=== PATIENT | male | born 1990 | race Caucasian/White ===

== ENCOUNTER 2017-01-12 19:34 | Emergency (ER) | payer SELFPAY ==
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
[2017-01-12] MEDS ORDERED: NAPROXEN 250 MG TABLET PO ONE (20:49)
--- NOTE | 2017-01-15 15:17 | RADIOLOGY REPORT ---
EXAM: ELBOW, LEFT 3 VIEWS HISTORY: PAIN. TECHNIQUE: Three views of the left elbow were performed. FINDINGS: No evidence of fracture or dislocation. No lytic or blastic lesion. IMPRESSION: NEGATIVE LEFT ELBOW EXAMINATION. [facility]: [id number] [facility]
--- NOTE | 2017-01-15 15:18 | RADIOLOGY REPORT ---
EXAM: HAND, RIGHT 3 VIEWS HISTORY: INJURY. TECHNIQUE: Three views of the right hand were performed. FINDINGS: No evidence of fracture or dislocation. No lytic or blastic lesion. IMPRESSION: NEGATIVE RIGHT HAND EXAMINATION. [facility]: [id number] [facility]
== END 2017-01-12 21:07 | disposition home or self-care (01) ==
LOC: ER 19:34
DX: S50.02XA Contusion of left elbow, initial encounter (principal); S63.91XA Sprain of unspecified part of right wrist and hand, initial encounter; W19.XXXA Unspecified fall, initial encounter; Y93.62 Activity, american flag or touch football
CPT/HCPCS: 99283

== ENCOUNTER 2018-02-08 13:40 | Emergency (ER) | payer MEDICAID ==
[2018-02-08] MEDS ORDERED: PENICILLIN V POTASSIUM 250 MG TAB PO ONE (13:47)
--- NOTE | 2018-02-08 13:51 | Emergency Department Record ---
History of Present Illness - General Chief complaint: Dental Stated complaint: ABSCESSED TOOTH Time Seen by Provider: 02/08/18 13:46 Source: Patient Mode of Arrival: Ambulatory Limitations: No limitations - History of Present Illness Initial comments: 27 yo male presents with about one week of dental pain. He has pain on the lower posterior molars bilaterally. MD complaint: Tooth pain -: Week(s) (1) Severity: Moderate Quality: Aching Consistency: Constant Improves with: None Worsens with: Eating Context- Dental: History of dental caries Associated Symptoms: Toothache - Related Data Previous Rx's Medication Instructions Recorded Penicillin V Potassium 500 mg PO QID #40 tablet 02/08/18 Allergies Allergy/AdvReac Type Severity Reaction Status Date / Time prochlorperazine edisylate Allergy ALTERED Unverified 12/09/17 14:02 [From Compazine] MENTAL STATUS prochlorperazine maleate Allergy ALTERED Unverified 12/09/17 14:02 [From Compazine] MENTAL STATUS promethazine HCl Allergy ALTERED Unverified 12/09/17 14:02 [From Phenergan] MENTAL STATUS Review of Systems Constitutional: Denies: Chills, Fever, Malaise Eyes: Denies: Eye discharge, Eye pain, Vision change ENT: Reports: As per HPI, Dental pain. Denies: Congestion, Ear pain, Throat pain Respiratory: Denies: Cough Cardiovascular: Denies: Chest pain Endocrine: Denies: Fatigue Gastrointestinal: Denies: Diarrhea, Nausea, Vomiting Genitourinary: Denies: Dysuria Musculoskeletal: Denies: Arthralgia, Joint swelling Skin: Denies: Bruising, Change in color, Rash Neurological: Denies: Headache Psychiatric: Denies: Anxiety Hematological/Lymphatic: Denies: Easy bleeding, Easy bruising, Swollen glands Past Medical History - SOCIAL HISTORY Smoking Status: Never smoker Drug Use Detail:: Marijuana - RESPIRATORY Hx Respiratory Disorders: No - CARDIOVASCULAR Hx Cardio Disorders: Yes Hx Hypertension: Yes - NEURO Hx Neuro Disorders: No - GI Hx GI Disorders: No - Hx Genitourinary Disorders: No - ENDOCRINE Hx Endocrine Disorders: No - MUSCULOSKELETAL Hx Musculoskeletal Disorders: No - PSYCH Hx Psych Problems: No - HEMATOLOGY/ONCOLOGY Hx Hematology/Oncology Disorders: No Family Medical History Family Hx Comment (NOT TO BE USED IN PLACE OF ITEMS BELOW): Mom Crohns *Cancer Comment: Uncle *Heart Comment: Aunts Hx Resp Disorders: Brother/Sister Physical Exam - General General Appearance: Alert, Cooperative Limitations: No limitations - Head Head exam: Atraumatic, Normal inspection - Eye Eye exam: Normal appearance. negative: Conjunctival injection - ENT ENT exam: Normal exam, Mucous membranes moist Ear exam: Normal external inspection Nasal Exam: Normal inspection Mouth exam: Normal external inspection, Tongue normal. negative: Drooling, Muffled voice, Tongue elevation, Trismus Teeth exam: Dental caries, Dental tenderness #, Other (bilateral posterior molars partially effupted, no abscess). negative: Normal inspection, Gingival enlargement - Neck Neck exam: Normal inspection, Full ROM. negative: Lymphadenopathy, Tenderness - Rectal Rectal exam: Deferred - exam: Deferred - Extremities Extremities exam: Normal inspection - Neurological Neurological exam: Alert, Normal gait, Oriented X3 - Psychiatric Psychiatric exam: Normal affect, Normal mood - Skin Skin exam: Dry, Intact, Normal color, Warm Course - Reevaluation(s) Reevaluation #1: No visible swelling or abscess at this time Rx for Penicillin V sent to his pharmacy A dental referral list was provided 02/08/18 13:52 Disposition Disposition: Discharge Clinical Impression: Pain, dental Disposition: Home, Self-Care Condition: (1) Good Instructions: Dental Abscess (ED) Additional Instructions: Call the numbers provided for a dental appointment this week Return or be seen if fever, worse, swelling or any new concerns Prescriptions: Penicillin V Potassium 500 mg PO QID #40 tablet Time of Disposition: 13:48 Quality - Quality Measures Quality Measures: N/A - Blood Pressure Screening Does Patient Have Any of the Following: No Systolic Measurement: ~ Screening for High Blood Pressure: < Pre-Hypertensive BP, F/U Documented > [ G8950] Pre-Hypertensive Follow-up Interventions: Referral to alternative/primary care provider.
== END 2018-02-08 14:13 | disposition home or self-care (01) ==
LOC: ER 13:40
DX: K08.89 Other specified disorders of teeth and supporting structures (principal); I10 Essential (primary) hypertension
CPT/HCPCS: 99282

== ENCOUNTER 2018-02-10 20:14 | Emergency (ER) | payer MEDICAID ==
[2018-02-10] MEDS ORDERED: HYDROCODONE/APAP 7.5/325MG TABLET PO ONE (20:27)
--- NOTE | 2018-02-10 20:30 | Emergency Department Record ---
History of Present Illness - General Chief complaint: Dental Stated complaint: LT SIDE JAW PAIN/SWELLING Time Seen by Provider: 02/10/18 20:17 Source: Patient Mode of Arrival: Ambulatory Limitations: No limitations - History of Present Illness Initial comments: 27 yo male returns to ED for evaluation of continued bilateral upper molar pain. Patient denies injury or trauma, but reports that he was seen 2 days ago and started on PCN VK as directed. Patient denies swelling or gingival pain symptoms, denies health problems at his baseline. Patient has been unable to establish with a dentist so far. Patient has been taking Motrin and Tylenol without improvement. MD complaint: Tooth pain Onset/Timin -: Week(s) Severity: Moderate Quality: Aching Consistency: Constant Improves with: None Worsens with: None Associated Symptoms: Toothache - Related Data Previous Rx's Medication Instructions Recorded Penicillin V Potassium 500 mg PO QID #40 tablet 02/08/18 Hydrocodone/Acetaminophen [[place] 1 tab PO Q6H PRN #10 tab 02/10/18 5mg/325mg] Allergies Allergy/AdvReac Type Severity Reaction Status Date / Time prochlorperazine edisylate Allergy ALTERED Verified 02/08/18 13:51 [From Compazine] MENTAL STATUS prochlorperazine maleate Allergy ALTERED Verified 02/08/18 13:51 [From Compazine] MENTAL STATUS promethazine HCl Allergy ALTERED Verified 02/08/18 13:51 [From Phenergan] MENTAL STATUS Travel Screening - Travel/Exposure Within Last 30 Days Have you traveled within the last 30 days?: No - Travel/Exposure Within Last Year Have you traveled outside the [place] in the last year?: No - Additonal Travel Details Have you been exposed to anyone with a communicable illness?: No - Travel Symptoms Symptom Screening: None Review of Systems Constitutional: Denies: Chills, Fever, Malaise, Night sweats Eyes: Denies: Eye discharge, Eye pain ENT: Reports: Dental pain. Denies: Ear pain, Epistaxis Respiratory: Denies: Cough, Dyspnea Cardiovascular: Denies: Chest pain, Dyspnea on exertion, Palpitations Endocrine: Denies: Fatigue, Heat or cold intolerance Gastrointestinal: Denies: Abdominal pain, Nausea, Vomiting Genitourinary: Denies: Incontinence, Retention Musculoskeletal: Denies: Arthralgia, Back pain, Gout, Joint swelling Skin: Denies: Bruising, Change in color Neurological: Denies: Abnormal gait, Confusion, Headache, Seizure Psychiatric: Denies: Anxiety Hematological/Lymphatic: Denies: Anemia, Blood Clots Past Medical History - SOCIAL HISTORY Smoking Status: Never smoker Alcohol Use: None Drug Use: None - RESPIRATORY Hx Respiratory Disorders: No - CARDIOVASCULAR Hx Cardio Disorders: Yes Hx Hypertension: Yes - NEURO Hx Neuro Disorders: No - GI Hx GI Disorders: No - Hx Genitourinary Disorders: No - ENDOCRINE Hx Endocrine Disorders: No - MUSCULOSKELETAL Hx Musculoskeletal Disorders: No - PSYCH Hx Psych Problems: No - HEMATOLOGY/ONCOLOGY Hx Hematology/Oncology Disorders: No Family Medical History Any Significant Family History?: Yes Family Hx Comment (NOT TO BE USED IN PLACE OF ITEMS BELOW): Mom Crohns *Cancer Comment: Uncle *Heart Comment: Aunts Hx Resp Disorders: Brother/Sister Physical Exam - General General Appearance: Alert, Oriented x3, Cooperative, Mild distress Limitations: No limitations - Head Head exam: Atraumatic, Normocephalic, Normal inspection Head exam detail: negative: Abrasion, Contusion, Hernandez's sign, General tenderness, Hematoma, Laceration - Eye Eye exam: Normal appearance. negative: Conjunctival injection, Periorbital swelling, Periorbital tenderness, Scleral icterus - ENT Ear exam: negative: Auricular hematoma, Auricular trauma Nasal Exam: negative: Active bleeding, Discharge, Dried blood, Foreign body Mouth exam: negative: Drooling, Laceration, Muffled voice, Tongue elevation Teeth exam: Dental tenderness #. negative: Dental caries Throat exam: negative: Tonsillar erythema, Tonsillomegaly, R peritonsillar mass , L peritonsillar mass Image of Mouth/Teeth: 1 - Pain, no gingival swelling 2 - Pain, no gingival swelling present - Neck Neck exam: Normal inspection. negative: Meningismus, Tenderness - Respiratory Respiratory exam: Normal lung sounds bilaterally. negative: Rales, Respiratory distress, Rhonchi, Stridor - Cardiovascular Cardiovascular Exam: Regular rate, Normal rhythm, Normal heart sounds - GI/Abdominal GI/Abdominal exam: Soft. negative: Rebound, Rigid, Tenderness - Rectal Rectal exam: Deferred - exam: Deferred - Extremities Extremities exam: Normal inspection. negative: Calf tenderness, Pedal edema, Tenderness - Back Back exam: Denies: CVA tenderness (R), CVA tenderness (L) - Neurological Neurological exam: Alert, Normal gait, Oriented X3 - Psychiatric Psychiatric exam: Normal affect, Normal mood - Skin Skin exam: Normal color. negative: Abrasion Type of lesion: negative: abrasion Course Vital Signs 02/10/18 20:22 Temperature 97.4 F L Pulse Rate [ 58 L Pulse Ox Probe] Respiratory 20 Rate Blood Pressure 150/90 [Left Arm] Pulse Ox 99 - Reevaluation(s) Reevaluation #1: 02/10/18 20:45 Dental referral faxed to [facility] dental clinic for emergent evaluation, will also prescribe [place] as needed for pain symptoms. Discussed changing the patient's antibiotics, however he has only taking PCN for 1 day. Patient is in agreement with the plan of care as discussed and appears stable for discharge at this time. Disposition Disposition: Discharge Clinical Impression: Pain, dental Disposition: Home, Self-Care Condition: (2) Stable Instructions: Dental Abscess (ED) Additional Instructions: Return to ED if your symptoms worsen or if you have any concerns. [place] as directed. Follow-up with your a dentist from the referral form in 1-2 days as directed. Prescriptions: Hydrocodone/Acetaminophen [[place] 5mg/325mg] 1 tab PO Q6H PRN #10 tab PRN Reason: Pain - General Forms: Patient Portal Access Time of Disposition: 20:30 Quality - Quality Measures Quality Measures: N/A - Blood Pressure Screening Does Patient Have Any of the Following: No Blood Pressure Classification: Hypertensive Reading Systolic Measurement: 150 Diastolic Measurement: 90 Screening for High Blood Pressure: < First Hypertensive BP, F/U Documented > [ G8950] First Hypertensive Follow-up Interventions: Referral to alternative/primary care provider.
== END 2018-02-10 20:35 | disposition home or self-care (01) ==
LOC: ER 20:14
DX: K08.89 Other specified disorders of teeth and supporting structures (principal); I10 Essential (primary) hypertension
CPT/HCPCS: 99282

== ENCOUNTER 2018-07-23 16:08 | Emergency (ER) | payer MEDICAID ==
--- NOTE | 2018-07-23 17:01 | Emergency Department Record ---
History of Present Illness - General Chief complaint: Extremity Problem Stated complaint: INJURY TO ELBOW Time Seen by Provider: 07/23/18 16:53 Source: Patient Mode of Arrival: Ambulatory Limitations: No limitations - History of Present Illness Initial comments: pt fell onto elbow and it now has swelling and tenderness Complaint: Joint pain, Joint swelling Onset/Timin -: Hour(s) Location: Right, Elbow Severity scale (1-10): 7 Improves with: Rest Worsens with: Exertion, Other - Related Data Allergies Allergy/AdvReac Type Severity Reaction Status Date / Time prochlorperazine edisylate Allergy ALTERED Verified 07/23/18 16:36 [From Compazine] MENTAL STATUS prochlorperazine maleate Allergy ALTERED Verified 07/23/18 16:36 [From Compazine] MENTAL STATUS promethazine HCl Allergy ALTERED Verified 07/23/18 16:36 [From Phenergan] MENTAL STATUS Travel Screening - Travel/Exposure Within Last 30 Days Have you traveled within the last 30 days?: No - Travel/Exposure Within Last Year Have you traveled outside the [place] in the last year?: No - Additonal Travel Details Have you been exposed to anyone with a communicable illness?: No - Travel Symptoms Symptom Screening: None Review of Systems Reviewed: No additional complaints except as noted below Constitutional: Reports: As per HPI. Denies: Chills, Fever, Malaise, Night sweats, Weakness, Weight change Eyes: Reports: As per HPI. Denies: Eye discharge, Eye pain, Photophobia, Vision change ENT: Reports: As per HPI. Denies: Congestion, Dental pain, Ear pain, Epistaxis , Hearing loss, Throat pain Respiratory: Reports: As per HPI. Denies: Cough, Dyspnea, Hemoptysis, Stridor, Wheezes Cardiovascular: Reports: As per HPI. Denies: Arrhythmia, Chest pain, Dyspnea on exertion, Edema, Murmurs, Orthopnea, Palpitations, Paroxysmal nocturnal dyspnea, Rheumatic Fever, Syncope Endocrine: Reports: As per HPI. Denies: Fatigue, Heat or cold intolerance, Polydipsia, Polyuria Gastrointestinal: Reports: As per HPI. Denies: Abdominal pain, Constipation, Diarrhea, Hematemesis, Hematochezia, Melena, Nausea, Vomiting Genitourinary: Reports: As per HPI. Denies: Dysuria, Frequency, Hematuria, Incontinence, Retention, Testicular pain, Testicular mass, Urgency Musculoskeletal: Reports: As per HPI. Denies: Arthralgia, Back pain, Gout, Joint swelling, Myalgia, Neck pain Skin: Reports: As per HPI. Denies: Bruising, Change in color, Change in hair/ nails, Lesions, Pruritus, Rash Neurological: Reports: As per HPI. Denies: Abnormal gait, Confusion, Headache, Numbness, Paresthesias, Seizure, Tingling, Tremors, Vertigo, Weakness Psychiatric: Reports: As per HPI. Denies: Anxiety, Auditory hallucinations, Depression, Homicidal thoughts, Suicidal thoughts, Visual hallucinations Hematological/Lymphatic: Reports: As per HPI. Denies: Anemia, Blood Clots, Easy bleeding, Easy bruising, Swollen glands Past Medical History - SOCIAL HISTORY Smoking Status: Never smoker Alcohol Use: None Drug Use: Rare Drug Use Detail:: Marijuana - RESPIRATORY Hx Respiratory Disorders: No - CARDIOVASCULAR Hx Cardio Disorders: Yes Hx Hypertension: Yes - NEURO Hx Neuro Disorders: No - GI Hx GI Disorders: No - Hx Genitourinary Disorders: No - ENDOCRINE Hx Endocrine Disorders: No - MUSCULOSKELETAL Hx Musculoskeletal Disorders: No - PSYCH Hx Psych Problems: No - HEMATOLOGY/ONCOLOGY Hx Hematology/Oncology Disorders: No Family Medical History Any Significant Family History?: No Family Hx Comment (NOT TO BE USED IN PLACE OF ITEMS BELOW): Mom Crohns *Cancer Comment: Uncle *Heart Comment: Aunts Hx Resp Disorders: Brother/Sister Physical Exam - General General Appearance: Alert, Oriented x3, Cooperative, No acute distress - Head Head exam: Normal inspection - Eye Eye exam: Normal appearance, PERRL, EOMI Pupils: Normal accommodation - ENT ENT exam: Normal exam, Mucous membranes moist, Normal external ear exam, Normal orophraynx Ear exam: Normal external inspection. negative: External canal tenderness Nasal Exam: Normal inspection. negative: Discharge, Sinus tenderness Mouth exam: Normal external inspection, Tongue normal Teeth exam: Normal inspection. negative: Dental caries Throat exam: Normal inspection. negative: Tonsillar erythema, Tonsillar exudate - Neck Neck exam: Normal inspection, Full ROM. negative: Tenderness - Respiratory Respiratory exam: Normal lung sounds bilaterally. negative: Respiratory distress - Cardiovascular Cardiovascular Exam: Regular rate, Normal rhythm, Normal heart sounds - GI/Abdominal GI/Abdominal exam: Soft, Normal bowel sounds. negative: Tenderness - Rectal Rectal exam: Deferred - exam: Deferred - Extremities Extremities exam: Normal inspection, Full ROM, Normal capillary refill, Tenderness Image of Full Body: 1 - swelling, tender, erythema - Back Back exam: Reports: Normal inspection, Full ROM. Denies: Muscle spasm, Rash noted, Tenderness - Neurological Neurological exam: Alert, Normal gait, Oriented X3, Reflexes normal - Psychiatric Psychiatric exam: Normal affect, Normal mood - Skin Skin exam: Dry, Intact, Normal color, Warm Course Vital Signs 07/23/18 16:28 Temperature 97.9 F Pulse Rate 71 Respiratory 16 Rate Blood Pressure 132/76 Pulse Ox 99 Disposition Disposition: Discharge Clinical Impression: Bursitis due to trauma Disposition: Home, Self-Care Condition: (1) Good Instructions: Elbow Bursitis (ED) Additional Instructions: follow up with family doctor. return sooner if worse. ice and elevation. motrin for pain. Forms: Patient Portal Access Quality - Quality Measures Quality Measures: N/A - Blood Pressure Screening Does Patient Have Any of the Following: No Blood Pressure Classification: Pre-Hypertensive BP Reading Systolic Measurement: 132 Diastolic Measurement: 76 Screening for High Blood Pressure: < Pre-Hypertensive BP, F/U Documented > [ G8950] Pre-Hypertensive Follow-up Interventions: Follow-up with rescreen every year.
[2018-07-23] MEDS ORDERED: IBUPROFEN 600 MG TABLET PO ONE (17:51)
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
== END 2018-07-23 18:13 | disposition home or self-care (01) ==
LOC: ER 16:08
DX: M70.821 Other soft tissue disorders related to use, overuse and pressure, right upper arm (principal); Y93.55 Activity, bike riding; I10 Essential (primary) hypertension
CPT/HCPCS: 99283

== ENCOUNTER 2019-02-20 10:07 | Emergency (ER) | payer MEDICAID ==
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
== END 2019-02-20 11:20 | disposition home or self-care (01) ==
LOC: ER 10:07
DX: S90.31XA Contusion of right foot, initial encounter (principal); I10 Essential (primary) hypertension; V19.3XXA Pedal cyclist (driver) (passenger) injured in unspecified nontraffic accident, initial encounter; Y92.410 Unspecified street and highway as the place of occurrence of the external cause
CPT/HCPCS: 99283